=== PATIENT | male | born 1990 | race Caucasian/White ===

== ENCOUNTER 2023-02-19 07:59 | Day surgery (SDC) | payer BC ==
[2023-02-19 08:17] LABS: BASOPHILS ABSOLUTE AUTO 0.05 K/uL (0.00-0.10); BASOPHILS PERCENT AUTO 0.8 % (0.1-1.3); EOSINOPHILS PERCENT AUTO 1.6 % (0.0-5.4); HEMATOCRIT 43.8 % (38.4-49.7); HEMOGLOBIN 14.8 g/dL (12.9-16.9); IMMATURE GRAN PERCENT AUTO 0.2 % (0.0-0.7); LYMPHOCYTES ABSOLUTE AUTO 1.69 K/uL (0.8-3.3); LYMPHOCYTES PERCENT AUTO 27.1 % (11.4-47.7); MEAN CORPUSCULAR HGB CONC 33.8 g/dL (31.6-35.5); MEAN CORPUSCULAR VOLUME 85.9 fL (81.4-99.0); MONOCYTES ABSOLUTE AUTO 0.84 K/uL (0.20-0.90); MONOCYTES PERCENT AUTO 13.5 % (3.3-12.6); NEUTROPHILS ABSOLUTE AUTO 3.54 K/uL (1.0-7.6); NEUTROPHILS PERCENT AUTO 56.8 % (40.0-78.1); PLATELET COUNT,PLT 235 K/uL (130-375); WHITE BLOOD CELL COUNT,WBC 6.2 K/uL (3.2-11.0)
[2023-02-19] MEDS ORDERED: Midazolam 1 MG/ML 2 ML SDV ONE ×2 (08:19→10:31)
[2023-02-19] MEDS ORDERED: fentaNYL 100 MCG/2 ML SDV ONE ×2 (08:19→10:34)
[2023-02-19] MEDS ORDERED: Propofol 200 MG/20 ML SDV ONE ×3 (08:19→11:17)
[2023-02-19] MEDS ORDERED: Lactated Ringers 1,000 ML IV SCH (08:30)
[2023-02-19] MEDS ORDERED: Nozin Nasal Sanitizer NASBOTH ONE (08:30)
[2023-02-19 08:32] LABS: IMMATURE GRAN ABSOLUTE AUTO 0.01 K/uL (0.00-0.23)
[2023-02-19 08:38] LABS: A/G RATIO 1.3 (1.2-2.2); ALANINE AMINOTRANSFERASE,ALT 17 U/L (12-78); ALBUMIN 4.2 g/dL (3.4-5.0); ALKALINE PHOSPHATASE 71 U/L (46-116); ANION GAP 8.8 mmol/L (5.0-14.0); ASPARTATE AMNIOTRANSFERASE,AST 11 U/L (15-37); BILIRUBIN TOTAL 0.7 mg/dL (0.2-1.0); BLOOD UREA NITROGEN,BUN 12 mg/dL (7-18); CALCIUM 8.8 mg/dL (8.5-10.1); CARBON DIOXIDE,CO2 29 mmol/L (21-32); CHLORIDE,CL 102 mmol/L (100-108); ESTIMATED GFR 103 mL/min (>60); GLUCOSE RANDOM 103 mg/dL (74-106); PROTEIN TOTAL,TP 7.5 g/dL (6.4-8.2); SODIUM,NA 140 mmol/L (140-148)
[2023-02-19] MEDS ORDERED: ceFAZolin 2 GM in Premix Bag 1 BAG IV ONE (09:00)
[2023-02-19] MEDS ORDERED: Bupivacaine 0.5% 30 ML SDV ONE ×2 (09:10→10:11)
== END 2023-02-19 13:24 | disposition home or self-care (01) ==
LOC: JP.SDS 07:59
PROVIDERS: ATTEND Specialist
DX: M24.412 Recurrent dislocation, left shoulder (principal); M25.312 Other instability, left shoulder; S43.402A Unspecified sprain of left shoulder joint, initial encounter
CPT/HCPCS: 29806; 36415; 80053; 85025; A9270; C1713; J0690; J2250; J2704; J3010; J3490; J7120